=== PATIENT | male | born 1980 | race Caucasian/White ===

== ENCOUNTER 2022-09-14 07:06 | Day surgery (SDC) | payer OTHER ==
[~2022-09-14 07:06] MED LIST: Dextrose 5%-0.45% NaCl 1,000 ML IV SCH; Midazolam 1 MG/ML 2 ML SDV ONE; Sodium Chloride 0.9% 10 ML Syringe FLUSH PRN; fentaNYL 100 MCG/2 ML SDV ONE
[2022-09-14] MEDS ORDERED: fentaNYL 100 MCG/2 ML SDV IV ONE ×4 (07:07→08:24)
[2022-09-14] MEDS ORDERED: Midazolam 1 MG/ML 2 ML SDV IV ONE ×7 (07:07→08:23)
[2022-09-14] MEDS ORDERED: Sodium Chloride 0.9% 10 ML Syringe FLUSH SCH (09:00)
== END 2022-09-14 09:52 | disposition home or self-care (01) ==
LOC: DL.ENDO 07:06
PROVIDERS: ATTEND Internal Medicine Gastroenterology
DX: K57.30 Diverticulosis of large intestine without perforation or abscess without bleeding (principal); Z98.890 Other specified postprocedural states
CPT/HCPCS: 45378; J2250; J3010; J7042